=== PATIENT | female | born 1995 | race Caucasian/White ===

== ENCOUNTER 2022-01-30 20:15 | Emergency (ER) | payer SELFPAY ==
[~2022-01-30] VITALS: Ht 157.5 cm; Wt 99.8 kg
[2022-01-30] MEDS ORDERED: PENICILLIN V P500 MG PO (20:21)
[2022-01-30] MEDS ORDERED: IBUPROFEN600 MG PO (20:23)
[2022-01-30] MEDS ORDERED: CLEOCIN HCL150 MG PO (21:04)
== END 2022-01-30 21:10 | disposition home or self-care (01) ==
LOC: ER 20:33
DX: K02.9 Dental caries, unspecified (principal); Z88.0 Allergy status to penicillin
CPT/HCPCS: 99282